=== PATIENT | female | born 1995 | race Caucasian/White ===

== ENCOUNTER 2021-12-19 19:38 | Inpatient (IN) | payer BC ==
[2021-12-19] MEDS ORDERED: WITCH HAZEL/ GLYCERIN PAD TP PRN (23:05)
[2021-12-19] MEDS ORDERED: BENZOCAINE/MENTHOL 20/0.5% TOP SPRAY 56 GM TP PRN (23:05)
[2021-12-19] MEDS ORDERED: MAGNESIUM HYDROXIDE (MOM) ORAL LIQD UDC PO PRN (23:05)
[2021-12-19] MEDS ORDERED: ACETAMINOPHEN 325 MG TAB PO PRN (23:05)
[2021-12-19] MEDS ORDERED: LANOLIN/ZINC/DIMETHICONE (LANSINOH) 7 GM TP PRN (23:05)
[2021-12-19] MEDS ORDERED: HYDROcodone/ACETAMINOPHEN 5-325 MG TAB PO PRN (23:05)
[2021-12-19] MEDS: IBUPROFEN 800 MG TAB PO SCH (23:28)
[2021-12-20] MEDS: IBUPROFEN 800 MG TAB PO SCH (05:53)
[2021-12-20 06:28] LABS: Amphetamine Screen,Urine PRESUMPTIVE NEGATIVE; Benzodiazepines Screen,Urine PRESUMPTIVE NEGATIVE; Cannabinoid Screen,Urine PRESUMPTIVE NEGATIVE; Cocaine Screen,Urine PRESUMPTIVE NEGATIVE; Methadone Screen,Urine PRESUMPTIVE NEGATIVE; Opiate Screen,Urine PRESUMPTIVE NEGATIVE
[2021-12-20 06:30] LABS: Bacteria,Urine 1+ /HPF (Negative); Mucus,Urine FEW /HPF
[2021-12-20 06:31] LABS: Color,Urine Yellow (Yellow); RBC,Urine > 182.0 /HPF (0.0-6.0)
[2021-12-20] MEDS ORDERED: PRENATAL VIT27-FE FUMARATE-FOLIC ACID VIT TAB PO SCH (10:00)
[2021-12-20] MEDS ORDERED: DOCUSATE SODIUM 100 MG CAP PO SCH (10:00)
[2021-12-20 10:06] LABS: Hematocrit 34.5 % (30.3-42.9); Mean Corpuscular HGB Conc 32 % (30-34); Mean Corpuscular Volume 90 fl (79-97); Platelet Count 172 K/mm3 (140-440); Red Blood Count 3.84 M/mm3 (3.65-5.03); Red Cell Distribution Width 14.1 % (13.2-15.2)
--- NOTE | 2021-12-20 12:41 | Consultation ---
History of Present Illness - Reason for Consult Consult date: 12/20/21 Reason for consult: [place]loe score - History of Present Psychiatric Illness The patient was seen today. She was admitted for childbirth. She is calm and cooperative. She makes fair eye contact. She says she was diagnosed with depression when she was younger. The patient says she has childhood trauma. She says she also has felt overwhelmed from the . The patient says she saw a therapist in the past but states she didn't like the therapist. The patient denies SI/HI. She says she's never felt suicidal or ever had an attempt. She denies any fear of endangerment. The patient denies hallucinations of any kind. I discussed with the patient the need and benefit of on going therapy to help her deal with her trauma and the benefit of an antidepressant. She is not interested at this time. PAST PSYCHIATRIC HISTORY: Diagnoses: MDD Suicide attempts or Self-harm behavior: Denies Prior psychiatric hospitalizations: Denies Substance Abuse history: Denies Previous psychiatric medications tried: Denies Outpatient treatment: Denies PAST MEDICAL HISTORY: None reported Family Psychiatric History: None reported or documented SOCIAL HISTORY Marital Status: Single Living Arrangements: lives with children Employment Status: Unemployed Access to guns/weapons: Denies Education: High school History of Abuse:Denies Legal History: Denies REVIEW OF SYSTEMS Constitutional: Negative for weight loss ENT: Negative for stridor Respiratory: Negative for cough or hemoptysis All other systems reviewed and are negative MENTAL STATUS EXAMINATION General Appearance and Behavior: Age appropriate, wearing appropriate clothes, cooperative, polite with questioning, fair eye contact Cooperation: cooperative Psychomotor Behavior: Psychomotor normal Mood: Depressed Affect and affective range: congruent with stated affect Thought Process: Goal directed Thought Content: Reality oriented Speech: Normal volume, Regular rate and rhythm Suicidal Ideation: Denies Homicidal Ideation: Denies Hallucination: Denies Delusions: Denies Impulse Control: Normal Insight and Judgment: Normal Memory: Intact Attention: attentive Orientation: Alert and oriented Diagnoses: Major Depressive Disorder Treatment Plan No scripts given Medical: per primary Sitter: Defer to primary Disposition: Do not recommend acute psychiatric inpatient treatment The grades 7 8 tutor to give the patient all necessary resources to establish outpatient psychiatry Will sign off. Thanks Case staffed with Dr. Mendenhall. Medications and Allergies Allergies Allergy/AdvReac Type Severity Reaction Status Date / Time No Known Allergies Allergy Verified 12/19/21 23:10 Home Medications Medication Instructions Recorded Confirmed Last Taken Type Nystatin SUSP 600,000 units PO 4XD 12/20/21 12/20/21 Unknown History Promethazine [Phenergan] 25 mg PO Q6HR PRN 12/20/21 12/20/21 Unknown History Valacyclovir HCl 1 gm PO DAILY 12/20/21 12/20/21 Unknown History Active Meds: Active Medications Acetaminophen (Acetaminophen 325 Mg Tab) 650 mg PO Q4H PRN PRN Reason: Pain MILD(1-3)/Fever >100.5/KENNY Hydrocodone Bitart/Acetaminophen (Hydrocodone/Acetaminophen 5-325 Mg Tab) 2 each PO Q6H PRN PRN Reason: Pain, Moderate (4-6) Benzocaine/Menthol (Benzocaine/Menthol 20/0.5% Top [place] 56 Gm) 1 spray TP PRN PRN PRN Reason: Episiotomy Pain Last Admin: 12/19/21 23:28 Dose: 1 spray Diphtheria/Tetanus/Acell Pertussis (Tetanus,Diph,Pertuss(Acell) Vaccine 0.5 Ml Syringe) 0.5 ml IM .ONCE ONE Stop: 12/21/21 06:01 Docusate Sodium (Docusate Sodium 100 Mg Cap) 100 mg PO BID [facility] Last Admin: 12/20/21 09:57 Dose: 100 mg Ibuprofen (Ibuprofen 800 Mg Tab) 800 mg PO Q6HR [facility] Last Admin: 12/20/21 05:53 Dose: 800 mg Magnesium Hydroxide (Magnesium Hydroxide (Mom) Oral Liqd Udc) 30 ml PO HS PRN PRN Reason: Constipation Multi-Ingredient Ointment (Lanolin/Zinc/Dimethicone (Lansinoh) 7 Gm) 1 applic TP PRN PRN PRN Reason: Sore Nipples Multivitamins/Iron/Calcium ( [id number]-Gj Fumarate-Folic Acid Vit Tab) 1 each PO QDAY [facility] Last Admin: 12/20/21 09:57 Dose: 1 each Sodium Chloride (Sodium Chloride 0.9% 10 Ml Flush Syringe) 10 ml IV PRN PRN PRN Reason: LINE FLUSH Witch Gloria/Glycerin (Witch Gloria/ Glycerin Pad) 1 each TP PRN PRN PRN Reason: Hemorrhoid/cleansing/soothing Last Admin: 12/19/21 23:27 Dose: 1 each Mental Status Exam - Vital signs Last Vital Signs Temp 98.2 F 12/20/21 07:59 Pulse 80 12/20/21 07:59 Resp 16 12/20/21 07:59 BP 105/65 12/20/21 07:59 Pulse Ox 98 12/20/21 07:59 Results Result Diagrams: 12/20/21 09:26 Abnormal lab results 12/20/21 Range/Units 05:55 Urine WBC (Auto) 41.0 H (0.0-6.0) /HPF All other labs normal.
--- NOTE | 2021-12-20 13:03 | Procedure Note ---
OB Delivery Note - Delivery Date of Delivery: 12/19/21 Surgeon: BUSHRA CUI - Vaginal Delivery presentation: vertex Delivery induction: none Delivery monitor: none Route of delivery: Delivery placenta: spontaneous Delivery laceration: 1st degree Anesthesia: none Delivery comments: This patient reports having contractions, loss of her mucous plug, rupture of her membranes, and delivery of a viable male at home. She reports that the placenta delivered shortly after the baby intact. She presented to the hospital approximately 7 hours after the delivery for evaluation. At that time the baby with attached placenta was presented to the NICU staff who clamped the cord and cut it. Upon admission care was assumed by the physician for unassigned patients. After the patient's nurse obtain additional history, the patient was noted to be a member of [place] [employer]. On-call physician per [place] [employer] [employer] not made aware of this patient's admission until 6 AM on 12/20/2021. Examination of the perineum was performed on day 1 and a first degree laceration is noted to be hemostatic. Delivery is unwitnessed by a medical provider and estimated blood loss in not known. - A Gender: Male (3590g @ 1236 pm 12/19/21)
--- NOTE | 2021-12-20 13:03 | History and Physical Report ---
History of Present Illness Date of examination: 12/20/21 Date of admission: 12/19/21 19:53 Chief complaint: I had my baby History of present illness: Pt is a 26 year old -Cypriot YARIEL 12/21/21 at 39w5d who presented on the evening of 12/19/21 after delivering her baby at home around 1236 pm. She has had care at [facility] since 31 wks complicated by late entry to care and genital herpes without lesion or prodrome. She is GBS n egative. Her chart has a notation that the patient desires a home or water delivery. This patient was initially thought to be an unassigned patient when she arrived on the evening of 12/19/2021. The physician on-call for unassigned patients was caring for her at that time. At approximately 6 AM on 12/20/2021 on-call physician for [facility] was notified that this patient is a part of that practice. I assumed care at that time. Past History Past Medical History: no pertinent history Past Surgical History: no surgical history [employer] History: herpes Family/Genetic History: none Social history: no significant social history - Obstetrical History Expected Date of Delivery: 12/21/21 Actual Gestation: 39 Week(s) 6 Day(s) : 2 Para: 1 Hx # Term Pregnancies: 1 Number of Pregnancies: 0 Spontaneous Abortions: 0 Induced : 0 Number of Living Children: 1 Medications and Allergies Allergies Allergy/AdvReac Type Severity Reaction Status Date / Time No Known Allergies Allergy Verified 12/19/21 23:10 Home Medications Medication Instructions Recorded Confirmed Last Taken Type Nystatin SUSP 600,000 units PO 4XD 12/20/21 12/20/21 Unknown History Promethazine [Phenergan] 25 mg PO Q6HR PRN 12/20/21 12/20/21 Unknown History Valacyclovir HCl 1 gm PO DAILY 12/20/21 12/20/21 Unknown History Active Meds: Active Medications Acetaminophen (Acetaminophen 325 Mg Tab) 650 mg PO Q4H PRN PRN Reason: Pain MILD(1-3)/Fever >100.5/[place] Hydrocodone Bitart/Acetaminophen (Hydrocodone/Acetaminophen 5-325 Mg Tab) 2 each PO Q6H PRN PRN Reason: Pain, Moderate (4-6) Benzocaine/Menthol (Benzocaine/Menthol 20/0.5% Top [place] 56 Gm) 1 spray TP PRN PRN PRN Reason: Episiotomy Pain Last Admin: 12/19/21 23:28 Dose: 1 spray Diphtheria/Tetanus/Acell Pertussis (Tetanus,Diph,Pertuss(Acell) Vaccine 0.5 Ml Syringe) 0.5 ml IM .ONCE ONE Stop: 12/21/21 06:01 Docusate Sodium (Docusate Sodium 100 Mg Cap) 100 mg PO BID [facility] Last Admin: 12/20/21 09:57 Dose: 100 mg Ibuprofen (Ibuprofen 800 Mg Tab) 800 mg PO Q6HR [facility] Last Admin: 12/20/21 05:53 Dose: 800 mg Magnesium Hydroxide (Magnesium Hydroxide (Mom) Oral Liqd Udc) 30 ml PO HS PRN PRN Reason: Constipation Multi-Ingredient Ointment (Lanolin/Zinc/Dimethicone (Lansinoh) 7 Gm) 1 applic TP PRN PRN PRN Reason: Sore Nipples Multivitamins/Iron/Calcium ( Qcz33-Hy Fumarate-Folic Acid Vit Tab) 1 each PO QDAY [facility] Last Admin: 12/20/21 09:57 Dose: 1 each Sodium Chloride (Sodium Chloride 0.9% 10 Ml Flush Syringe) 10 ml IV PRN PRN PRN Reason: LINE FLUSH Witch Gloria/Glycerin (Witch Gloria/ Glycerin Pad) 1 each TP PRN PRN PRN Reason: Hemorrhoid/cleansing/soothing Last Admin: 12/19/21 23:27 Dose: 1 each Review of Systems All systems: negative - Vital Signs Vital signs: Vital Signs Temp Resp Pulse Ox 98.6 F 18 100 12/19/21 20:32 12/19/21 20:32 12/19/21 20:32 Temp Pulse Resp BP Pulse Ox 98.6 F 72 20 100/63 100 12/20/21 11:46 12/20/21 11:46 12/20/21 11:46 12/20/21 11:46 12/20/21 11:46 - Physical Exam Breasts: Positive: deferred Abdomen: Positive: soft Extremities: Positive: normal Results Result Diagrams: 12/20/21 09:26 Abnormal lab results 12/20/21 Range/Units 05:55 Urine WBC (Auto) 41.0 H (0.0-6.0) /HPF All other labs normal. Assessment and Plan A: s/p at home at 39w5d P: Routine care Secure copy of records
--- NOTE | 2021-12-20 13:03 | Progress Note ---
Assessment and Plan A: PPD#1 s/p home delivery at 39 wks P: Routine care Discharge home in 12-24 hours Subjective - Subjective Date of service: 12/20/21 Principal diagnosis: s/p at term Interval history: Pt has no complaints. She desires to go home later today. She does not desire any pain medication prescription. Patient reports: appetite normal, voiding normally, pain well controlled, ambulating normally : doing well Objective - Vital Signs Latest vital signs: Vital Signs Temp Pulse Resp BP BP Pulse Ox Pulse Ox 12/20/21 11:46 98.6 F 72 20 100/63 100 12/20/21 07:59 98.2 F 80 16 105/65 98 12/20/21 06:53 18 12/20/21 05:53 18 12/20/21 00:44 98.3 F 61 20 100/50 100 12/20/21 00:28 18 12/19/21 23:28 20 12/19/21 22:50 98.5 F 80 18 105/60 100 100 12/19/21 20:47 98.6 F 18 100 100 12/19/21 20:32 98.6 F 18 100 100 Intake and Output 12/19/21 12/20/21 12/20/21 22:59 06:59 14:59 Intake Total 480 Balance 480 Intake: Oral 120 Intake, Free Water 360 Other: Total, Intake Amount 120 # Voids Void 1 Weight 95.254 kg - Exam Breasts: Present: deferred Abdomen: Present: soft Uterus: Present: fundal height below umbilicus Extremities: Present: normal - Labs Labs: Abnormal lab results 12/20/21 Range/Units 05:55 Urine WBC (Auto) 41.0 H (0.0-6.0) /HPF
--- NOTE | 2021-12-20 14:16 | Discharge Summary ---
Providers - Providers Date of Admission: 12/19/21 19:53 Date of discharge: 12/20/21 Attending physician: BUSHRA CUI 12/20/21 11:02 Consult to Mental Health [CONS] Routine Reason For Exam: [place] depression score 27 Primary care physician: BUSHRA CUI Hospitalization Reason for admission: other (Active Labor, Home delivery ) Delivery: Procedure details: Please see delivery note Episiotomy: none Laceration: 1st degree (hemostatic without repair ) Other procedures: none complications: none Discharge diagnosis: IUP at term delivered baby: male Hospital course: Patient was admitted after active labor and spontaneous vaginal delivery at home. Her course was uncomplicated and she met discharge criteria on day #1. She will follow-up in the office in 4 weeks. Pt has declined any prescriptions for home medications. Condition at discharge: Stable Disposition: 01 HOME / SELF CARE / HOMELESS - Discharge Diagnoses (1) Term of male Status: Acute (2) Normal spontaneous vaginal delivery Status: Acute Plan - Provider Discharge Summary Activity: routine, no sex for 6 weeks, no heavy lifting 4 weeks, no strenuous exercise Diet: routine Instructions: routine Additional instructions: [] Smoking cessation referral if applicable(refer to patient education folder for contact #) [] Refer to [facility]'s [facility] Booklet Call your doctor immediately for: * Fever > 100.5 * Heavy vaginal bleeding ( >1 pad per hour) * Severe persistent headache * Shortness of breath * Reddened, hot, painful area to leg or breast * Drainage or odor from incision. * Keep incision clean and dry at all times and follow doctor's instructions regarding bathing/showering - Follow up plan Follow up: [facility] [employer] [Advanced Practice Nurse] - 01/21/22 (Please call to schedule your appt )
[2021-12-20 16:21] VITALS: BP 98/56
[2021-12-21] MEDS ORDERED: TETANUS,DIPH,PERTUSS(ACELL) VACCINE 0.5 ML SYRINGE IM ONE (06:00)
== END 2021-12-20 20:15 | disposition home or self-care (01) | DRG 776 ==
LOC: TRG 19:38 → APU 19:40 → TRG 19:49 → OB 19:53 → UNDOADMIN 19:53 → LD 19:53 → OB 22:05 → LD 22:05
PROVIDERS: ADMIT Obstetrics & Gynecology; ATTEND Obstetrics & Gynecology
DX: Z39.0 Encounter for care and examination of mother immediately after delivery (principal); Z20.822 Contact with and (suspected) exposure to COVID-19; O70.0 First degree perineal laceration during delivery
CPT/HCPCS: 36415; 80307; 81001; 85027; 86850; 86900; 86901; 87086; G0378; U0003